=== PATIENT | female | born 1980 | race Caucasian/White ===

== ENCOUNTER 2018-09-29 10:00 | Emergency (ER) | payer SELFPAY ==
[~2018-09-29] VITALS: Wt 57.2 kg
[2018-09-29] MEDS ORDERED: LIDOCAINE/MYLANTA 40 ML BTL PO STA (10:37)
[2018-09-29] MEDS ORDERED: KETOROLAC 30 MG INJ IM STA (10:37)
[2018-09-29] MEDS ORDERED: MAG-19 PO (11:50)
[2018-09-29 12:18] VITALS: BP 188/96; PULSE 64; RESP 18
--- NOTE | 2018-09-29 18:26 | ERD ---
ER Documentation Chief Complaint Chief Complaint ABD PAIN, ON AND OFF X3 MONTHS, GETTING WORSE HPI 38-year-old female presents for abdominal pain times 3 months. Pain is located in the left upper quadrant, rated 6 out of 10, described as sharp, intermittent. She denies any nausea vomiting or diarrhea. She denies fevers or dysuria. Also denies cough. Had labs done about a month ago which showed liver inflammation. Patient also had ultrasound with her primary care physician which was negative. ROS All systems reviewed and are negative except as per history of present illness. Medications Home Meds Active Scripts Magaldrate/Simethicone* (Mylanta*) 355 Ml Susp, 30 ML PO QID PRN for GASTROINTESTINAL UPSET, #1 BOTTLE Prov:ASA SANDERSON DO 09/29/18 Allergies Allergies: Coded Allergies: No Known Allergy (Unverified , 09/29/18) PMhx/Soc Medical and Surgical Hx: pt denies Medical Hx History of Surgery: Yes (uterine tumor removal) Anesthesia Reaction: No Hx Alcohol Use: No Hx Substance Use: No Hx Tobacco Use: No Smoking Status: Never smoker Physical Exam Vitals Vital Signs Date Temp Pulse Resp B/P (MAP) Pulse Ox O2 O2 Flow FiO2 Time Delivery Rate 09/29/18 64 18 188/96 100 Room Air 12:18 (126) 09/29/18 97.4 70 17 188/96 98 10:04 (126) Physical Exam Const: No acute distress Resp: Clear to auscultation bilaterally Cardio: Regular rate and rhythm, no murmurs Abd: Soft, non distended. Normal bowel sounds, quadrant moderate tenderness to palpation, there is no flank tenderness to palpation, no McBurney's point tenderness, no Hussein sign, no rebound or guarding noted Skin: No petechiae or rashes Back: No midline or flank tenderness Ext: No cyanosis, or edema Neur: Awake and alert Psych: Normal Mood and Affect Results 24 hrs Laboratory Tests Test 09/29/18 10:49 09/29/18 10:50 09/29/18 10:51 White Blood Count 7.2 10^3/ul Red Blood Count 5.30 10^6/ul Hemoglobin 15.0 g/dl Hematocrit 43.8 % Mean Corpuscular Volume 82.6 fl Mean Corpuscular Hemoglobin 28.3 pg Mean Corpuscular 34.2 g/dl Hemoglobin Concent Red Cell Distribution Width 12.6 % Platelet Count 332 10^3/UL Mean Platelet Volume 8.7 fl Immature Granulocytes % 0.100 % Neutrophils % 48.3 % Lymphocytes % 42.1 % Monocytes % 5.1 % Eosinophils % 3.6 % Basophils % 0.8 % Nucleated Red Blood Cells % 0.0 /100WBC Immature Granulocytes # 0.010 10^3/ul Neutrophils # 3.5 10^3/ul Lymphocytes # 3.0 10^3/ul Monocytes # 0.4 10^3/ul Eosinophils # 0.3 10^3/ul Basophils # 0.1 10^3/ul Nucleated Red Blood Cells # 0.0 10^3/ul Sodium Level 143 mmol/L Potassium Level 3.4 mmol/L Chloride Level 100 mmol/L Carbon Dioxide Level 29 mmol/L Anion Gap 14 Blood Urea Nitrogen 14 mg/dl Creatinine 0.64 mg/dl Est Glomerular Filtrat > 60 mL/min Rate mL/min Glucose Level 123 mg/dl Calcium Level 9.6 mg/dl Total Bilirubin 0.2 mg/dl Direct Bilirubin 0.00 mg/dl Indirect Bilirubin 0.2 mg/dl Aspartate Amino 26 IU/L Transf (AST/SGOT) Alanine 25 IU/L Aminotransferase (ALT/SGPT) Alkaline Phosphatase 91 IU/L Total Protein 8.2 g/dl Albumin 4.7 g/dl Globulin 3.50 g/dl Albumin/Globulin Ratio 1.34 Lipase 77 U/L Urine Color YELLOW Urine Clarity SLIGHTLY CLOUDY Urine pH 6.0 Urine Specific [place] 1.015 Urine Ketones NEGATIVE mg/dL Urine Nitrite NEGATIVE mg/dL Urine Bilirubin NEGATIVE mg/dL Urine Urobilinogen NEGATIVE mg/dL Urine Leukocyte Esterase TRACE Mynor/ul Urine Microscopic RBC 2 /HPF Urine Microscopic WBC 3 /HPF Urine Squamous Epithelial Cells FEW /HPF Urine Hemoglobin NEGATIVE mg/dL Urine Glucose NEGATIVE mg/dL Urine Total Protein NEGATIVE mg/dl POC Beta HCG, Qualitative NEGATIVE Current Medications Medications Dose Sig/Tony Start Time Status Last (Trade) Ordered Route PRN Stop Time Admin Dose Reason Admin 40 ml ONCE STAT 09/29/18 DC 09/29/18 Miscellaneous PO 10:37 10:58 Medication 09/29/18 10:40 (Gi Cocktail (2)) Ketorolac 30 mg ONCE STAT 09/29/18 DC 09/29/18 Tromethamine IM 10:37 10:59 (Toradol) 09/29/18 10:40 Procedures/MDM Medical Decision Making: Differential diagnosis includes but not limited to acute gastritis, acute gastroenteritis, appendicitis, cholecystitis, pancreatitis. Patient appeared well on physical exam. Nontoxic appearing. Labs: CBC showed no anemia, no elevated WBC to suggest infection CMP showed potassium 3.4, otherwise electro lites normal, normal kidney function, normal liver function. Lipase was normal Urine was negative UA was negative for infection Imaging: CT abdomen and pelvis without contrast showed no acute pathology ED course: Patient was given GI cocktail, Toradol. Symptoms improved with treatment. Patient possibly has an acute gastritis Prescription(s): Patient given prescription for Mylanta. Patient had a blood pressure 188/96. Repeat was essentially the same. Patient was asymptomatic regarding her blood pressure. Patient does have history of hypertension although she states that she did not take her medication today. Patient advised to follow-up with a primary care physician in 1-2 days for recheck, patient agrees with plan. Patient agrees to take the medication when she gets home. Patient advised to follow up with PCP in 1-2 days. Patient advised to return to ED for new or worsening symptoms. Patient stable on discharge from the ED. Disclaimer: Inadvertent spelling and grammatical errors are likely due to EHR/dictation software use and do not reflect on the overall quality of patient care. Also, please note that the electronic time recorded on this note does not necessarily reflect the actual time of the patient encounter. Departure Diagnosis: Primary Impression: Abdominal pain Condition: Fair Patient Instructions: Abdominal Pain Referrals: [facility] YOU HAVE RECEIVED A MEDICAL SCREENING EXAM AND THE RESULTS INDICATE THAT YOU DO NOT HAVE A CONDITION THAT REQUIRES URGENT TREATMENT IN THE EMERGENCY DEPARTMENT. FURTHER EVALUATION AND TREATMENT OF YOUR CONDITION CAN WAIT UNTIL YOU ARE SEEN IN YOUR DOCTORS OFFICE WITHIN THE NEXT 1-2 DAYS. IT IS YOUR RESPONSIBILITY TO MAKE AN APPOINTMENT FOR FOLOW-UP CARE. IF YOU HAVE A PRIMARY DOCTOR --you should call your primary doctor and schedule an appointment IF YOU DO NOT HAVE A PRIMARY DOCTOR YOU CAN CALL OUR PHYSICIAN REFERRAL HOTLINE AT IF YOU CAN NOT AFFORD TO SEE A PHYSICIAN YOU CAN CHOSE FROM THE FOLLOWING [facility] [address] [facility] [address] [facility] [facility] [address] [facility] [address] [facility] [address] [facility]. [facility]. [address] Additional Instructions: Llame al doctor MAANA y miguel angel home JING PARA DENTRO DE 1-2 SMALLS.Dgale a la secretaria que nosotros le instruimos hacer esta jing.Avise o llame si wagner condicin se empeora antes de la jing. Regresa aqui si peor o no mejor. ASA SANDERSON DO Sep 29, 2018 18:26
== END 2018-09-29 12:20 | disposition home or self-care (01) ==
LOC: FTE 10:00
DX: R10.9 Unspecified abdominal pain (principal)
CPT/HCPCS: 36415; 74176; 80053; 81001; 81025; 83690; 85025; 96372; 99285; J1885